=== PATIENT | female | born 1940 | race Caucasian/White ===

== ENCOUNTER 2016-09-10 18:49 | Inpatient (IN) | payer MEDICARE, MEDICAID ==
[2016-09-10 19:34] LABS: % BASOPHILS 0.1 % (0.0-2.0); % EOSINOPHILS 0.4 % (0.0-5.0); % LYMPHOCYTES 20.1 % (20.0-50.0); % MONOCYTES 4.6 % (2.0-10.0); % NEUTROPHILS 74.8 % (40.0-80.0); MEAN CELL VOLUME 84.6 fl (81-100); MEAN CORPUSCULAR HEMOGLOBIN 28.2 pg (27.0-31.0); MEAN CORPUSCULAR HGB CONC 33.3 pg (28.0-36.0); MEAN PLATELET VOLUME 9.4 fl; NEUTROPHILE ABSOLUTE 8.5 Th/cmm (1.8-8.0); PLATELET COUNT 236 Th/cmm (150-400); RED BLOOD COUNT 5.71 Mil/cmm (3.80-5.20); RED CELL DISTRIBUTION WIDTH 13.1 % (11.5-20.0)
[2016-09-10 19:39] LABS: WHITE BLOOD COUNT 11.3 Th/cmm (4.8-10.8)
[2016-09-10 19:40] LABS: HEMATOCRIT 48.3 % (35.0-45.0); HEMOGLOBIN 16.1 gm/dL (11.7-16.1)
[2016-09-10 19:48] LABS: ALB/GLOB RATIO 1.2 (1.0-1.8); ALKALINE PHOSPHATASE 106 U/L (34-104); ANION GAP 10.9 (7.0-16.0); BILIRUBIN,TOTAL 0.3 mg/dL (0.3-1.0); BUN - UREA NITROGEN 16 mg/dL (7-25); CALCIUM SERUM 10.1 mg/dL (8.6-10.3); CHLORIDE 107 mEq/L (98-107); GLUCOSE 143 mg/dL (70-105); POTASSIUM SERUM 3.9 mEq/L (3.5-5.1); SGOT 19 U/L (13-39); SGPT/ALT 7 U/L (7-52); SODIUM SERUM 139 mEq/L (136-145)
[2016-09-10 19:49] LABS: CHOLESTEROL 165 mg/dL (<200); TRIGLYCERIDES 248 mg/dL (<150)
[2016-09-10 19:53] LABS: INR 0.93 (0.5-1.4); PROTHROMBIN TIME (TEST) 9.7 SECONDS (9.5-11.5)
--- NOTE | 2016-09-10 20:15 | ED Physician Chart ---
Chief Complaint/HPI - Patient Information Date Seen:: 09/10/16 Time Seen:: 18:55 Chief Complaint:: generalized weakness History of Present Illness:: 76-year-old female with increasing, constant, moderate to severe generalized weakness 2-3 days. Associated decreased oral intake. History limited patient underlying dementia prevents history History provided by EMS and EMS run sheet Allergies:: Allergies Allergy/AdvReac Type Severity Reaction Status Date / Time nitrofurantoin Allergy Verified 09/10/16 19:34 Penicillins Allergy Verified 09/10/16 19:34 MACROCRYSTAL Allergy Uncoded 09/10/16 19:35 Vitals:: Vital Signs - 8 hr 09/10/16 19:07 Temp 98.7 F HR 106 RR 16 BP 143/80 O2 Sat % 95 Historian:: EMS Review:: Nurse's Note Reviewed, EMS run form Reviewed, Transfer documents Reviewed Review of Systems - Review of Systems Other: Complete system review otherwise unremarkable except as noted in HPI. Past Medical History - Past Medical History Past Medical History: HTN, Dementia Family History: None Social History: Non Smoker, No Alcohol, No Drug Use, Care Facility Surgical History: None Psychiatricy History: Schizophrenia Medication: Reviewed Family Medical History - Family Member Mother History Unknown: Yes Physical Exam - Physical Examination Other:: INITIAL VITAL SIGNS: Reviewed by me GENERAL: Alert and demented and not interactive. No acute distress HEAD: Head is normocephalic and atraumatic EYES: EOMI. . No scleral icterus. No conjunctival injection ENT: Moist mucous membranes. NECK: Supple. No masses. Full range of motion RESPIRATORY: No tachypnea. Clear breath sounds bilaterally. No wheezing, rales, or rhonchi CV: Regular rate and rhythm. No murmurs, rubs, or gallops ABDOMEN: Soft, non-distended, non-tender. No guarding. No rebound. No masses. EXTREMITIES: No deformity. No cyanosis. No edema. SKIN: Warm and dry. No obvious rashes. NEUROLOGIC: Alert and oriented. Face is symmetric. Speech is normal. Moves all extremities equally. Motor and sensory distally intact. Labs/Radiology/EKG Results - Lab Results Results: Laboratory Tests 09/10/16 09/10/16 09/10/16 19:10 19:10 19:10 WBC 11.3 H D RBC 5.71 H Hgb 16.1 D Hct 48.3 H D MCV 84.6 MCH 28.2 MCHC Differential 33.3 RDW 13.1 Plt Count 236 MPV 9.4 Neutrophils % 74.8 Lymphocytes % 20.1 Monocytes % 4.6 Eosinophils % 0.4 Basophils % 0.1 PT 9.7 INR 0.93 PTT (Actin FS) 26.1 Sodium Potassium Chloride Carbon Dioxide Anion Gap BUN Creatinine Est GFR ( Amer) Est GFR (Non-Af Amer) BUN/Creatinine Ratio Glucose Calcium Total Bilirubin AST ALT Alkaline Phosphatase Troponin I Total Protein Albumin Globulin Albumin/Globulin Ratio Triglycerides 248 H Cholesterol 165 LDL Cholesterol Direct 97 HDL Cholesterol 41 09/10/16 09/10/16 19:10 19:10 WBC RBC Hgb Hct MCV MCH MCHC Differential RDW Plt Count MPV Neutrophils % Lymphocytes % Monocytes % Eosinophils % Basophils % PT INR PTT (Actin FS) Sodium 139 Potassium 3.9 Chloride 107 Carbon Dioxide 25.0 Anion Gap 10.9 BUN 16 Creatinine 1.0 Est GFR ( Amer) TNP Est GFR (Non-Af Amer) TNP BUN/Creatinine Ratio 16.0 Glucose 143 H Calcium 10.1 Total Bilirubin 0.3 AST 19 ALT 7 Alkaline Phosphatase 106 H Troponin I < 0.01 L Total Protein 7.5 Albumin 4.1 Globulin 3.4 Albumin/Globulin Ratio 1.2 Triglycerides Cholesterol LDL Cholesterol Direct HDL Cholesterol - Radiology Results Results: Single AP VIEW Portable Chest X-ray was interpreted independently and contemporaneously by Kkie Light MD: No cardiomegaly Normal mediastinum No lung infiltrates No pneumothorax No soft tissue or bony abnormalities - EKG Interpretations Comments:: 12-lead EKG Interpretation by Kike Light MD: Sinus tachycardia with ventricular rate of 107 beats per minute Normal axis Normal intervals No acute ST or T wave changes. No obvious STEMI ED Septic Shock - . Is Septic Shock (SBP<90, OR Lactate>4 mmol\L) present?: No - <6hrs of presentation: Vital Signs: Vital Signs - 8 hr 09/10/16 19:07 Temp 98.7 F HR 106 RR 16 BP 143/80 O2 Sat % 95 Reassessment (Disposition) - Reassessment Reassessment:: The patient has UTI. Received IV fluids and IV Rocephin. Symptoms could be caused from the infection. May have some underlying encephalopathy due to infectious etiology. Discussed case with admitting physician he will admit for further workup and treatment. Reassessment Condition:: Improved - Diagnosis Diagnosis:: Failure to thrive with associated decreasing activities daily living Urinary tract infection Leukocytosis Hypertension - Patient Disposition Discharge/Transfer:: Acute Care w/in this hosp Admitting Medical Physician:: Adin Mora Time:: 21:20 Condition at Disposition:: Improved
[2016-09-10] MEDS ORDERED: Sodium Chloride 0.9% 1,000 ML IV ONE (20:20)
[2016-09-10] MEDS ORDERED: cefTRIAXone 1 GM in Sodium Chloride 0.9% 50 ML IV ONE (20:20)
[2016-09-10 21:19] LABS: URINE BILIRUBIN NEGATIVE (NEGATIVE); URINE COLOR YELLOW; URINE GLUCOSE (UA) NEGATIVE (NEGATIVE); URINE KETONE TRACE mg/dL (NEGATIVE)
[2016-09-10 21:21] LABS: URINE BLOOD MODERATE (NEGATIVE)
[2016-09-10 21:22] LABS: URINE PROTEIN 30 mg/dL (NEGATIVE)
[2016-09-10 21:24] LABS: URINE BACTERIA MANY /hpf (NONE SEEN); URINE EPITHELIAL CELLS FEW /lpf (FEW); URINE WBC >100 /hpf (0-5)
[2016-09-10] MEDS ORDERED: Albuterol Nebulizer 2.5mg/3mL HHN PRN (22:21)
[2016-09-10] MEDS: D5-0.45NS 1,000 ML IV SCH (23:41)
--- NOTE | 2016-09-11 03:50 | Admit Criteria Form ---
Admit Criteria Forms - Admit Criteria Diagnosis: URINARY COMPLICATIONS Clinical Indications for Inpatient Care (Place 'X' for any and all applicable criteria): Ongoing inpatient care may be indicated for urinary complications with ANY ONE of the following: [X ]I. Urinary tract infection requiring inpatient care as indicated by ANY ONE of the following(8)(19)(20): [ ]a) Severe symptoms (eg, high fever, severe pain) [ ]b) Vomiting or dehydration requiring ongoing inpatient care [X ]c) IV antibiotic needs that cannot be managed at lower level of care [ ]d) Hemodynamic instability [ ]e) Obstruction of collecting system by stone or tumor [ ]II. Urinary retention requiring drainage or surgery (3)(4)(5)(17)(18) [ ]III. Renal failure (Use Renal Failure Criteria for further information.) [ ]IV. Oliguria(30) [ ]V. Post obstructive diuresis requiring close monitoring of urine output and intravenous compensation for excessive fluid losses(33) Extended stay beyond goal length of stay for primary condition may be needed until ALL of the following are present(3)(4)(5)(8): [ ]a) Renal function (creatinine) at baseline, or daily decreases in creatinine consistent with renal function return [ ]b) Voiding adequately or with urinary catheter or percutaneous suprapubic tube and management regimen in place that is performable at lower level of care. [ ]c) Urine output adequate [ ]d) Fever absent or resolving [ ]e) Infection absent or treatable at next level of care The original [employer] content created by [employer] has been revised. The portions of the content which have been revised are identified through the use of italic text or in bold, and [facility] has neither reviewed nor approved the modified material. All other unmodified content is copyright [facility] [employer] Please see references footnoted in the original [facility] [employer] edition 2016 Admit Criteria Met?: Yes
[2016-09-11 07:12] LABS: ALB/GLOB RATIO 1.2 (1.0-1.8); ALKALINE PHOSPHATASE 83 U/L (34-104); ANION GAP 8.5 (7.0-16.0); BILIRUBIN,TOTAL 0.3 mg/dL (0.3-1.0); BUN - UREA NITROGEN 14 mg/dL (7-25); BUN/CREATININE RATIO 15.6; CALCIUM SERUM 8.8 mg/dL (8.6-10.3); CARBON DIOXIDE 27.2 mEq/L (21.0-31.0); CHLORIDE 110 mEq/L (98-107); CREATININE - SERUM 0.9 mg/dL (0.6-1.2); GLUCOSE 86 mg/dL (70-105); POTASSIUM SERUM 3.7 mEq/L (3.5-5.1); SGOT 14 U/L (13-39); SGPT/ALT 7 U/L (7-52); SODIUM SERUM 142 mEq/L (136-145)
[2016-09-11 07:14] LABS: MEAN CELL VOLUME 85.2 fl (81-100); MEAN CORPUSCULAR HEMOGLOBIN 28.3 pg (27.0-31.0); MEAN CORPUSCULAR HGB CONC 33.2 pg (28.0-36.0); MEAN PLATELET VOLUME 9.9 fl; PLATELET COUNT 190 Th/cmm (150-400); RED BLOOD COUNT 4.71 Mil/cmm (3.80-5.20); RED CELL DISTRIBUTION WIDTH 13.1 % (11.5-20.0)
[2016-09-11 07:16] LABS: HEMATOCRIT 40.1 % (35.0-45.0); HEMOGLOBIN 13.3 gm/dL (11.7-16.1); WHITE BLOOD COUNT 6.6 Th/cmm (4.8-10.8)
[2016-09-11] MEDS: Levothyroxine 0.125 Mg Tab PO SCH (08:37)
[2016-09-11 08:41] LABS: BASOPHIL 1 % (0-3); EOSINOPHIL 3 % (0-5); NEUTROPHILS 29 % (40-80); TOTAL CELLS COUNTED 100
[2016-09-11 08:42] LABS: PLATELET ESTIMATE ADEQUATE (NORMAL); PLATELET MORPHOLOGY NORMAL (NORMAL)
[2016-09-11] MEDS ORDERED: Non-Formulary Item 1 EA (Nutritional Supplement [Resource 2.0] 90 ML) PO SCH (09:00)
--- NOTE | 2016-09-11 09:25 | Diagnostic Imaging Report ---
Portable chest x-ray History: Shortness of breath Allowing for portable technique the heart size is normal. No focal pulmonary parenchymal processes. No hilar or mediastinal abnormalities. Impression: No acute abnormalities.
--- NOTE | 2016-09-11 12:24 | Consultation ---
AGE: 76. SEX: Female. PHYSICIAN: Dr. Castillo. AIRPLANE DISPATCHER: Dr. Cagle. REASON FOR THE CONSULT: Agitation and confusion. HISTORY OF PRESENT ILLNESS: The patient is a 76-year-old female who was admitted to the hospital under the care of Dr. Castillo, and the patient has been confused and has been agitated and restless. The patient also has been irritable. The patient also resisting care. The patient was not able to answer much of my questions and she seems to be developmentally disabled. She also was resisting care and disheveled. PAST PSYCHIATRIC HISTORY: The patient seems to have history of psychosis. PAST MEDICAL HISTORY: As per Dr. Castillo. SOCIAL HISTORY: The patient lives in a [facility]iary in the [facility]. No known alcohol or drug use. MENTAL STATUS EXAM: The patient appears older than his stated age. Disheveled. Restless. Keeps moving. The patient did not answer questions regarding hallucinations, but seems to be actively hallucinating and psychotic. Poor insight. Poor judgment. ASSESSMENT: PRIMARY DIAGNOSIS: Unspecified psychosis. TREATMENT PLAN AND RECOMMENDATIONS: We will give Seroquel at a dose of 12.5 mg on a p.r.n. basis. We will reevaluate. Thanks to Dr. Castillo and will follow up with you. JOB# [id number]
--- NOTE | 2016-09-11 15:36 | History & Physical ---
CHIEF COMPLAINT: Failure to thrive, UTI and generalized weakness. HISTORY OF PRESENT ILLNESS: This is a 76-year-old female who presents to [facility] ER for failure to thrive, dehydration, malnutrition and dysphagia. The patient was noted to have decreased [facility] at the prison facility, failure to thrive, losing weight, dehydration was subsequently transferred to [facility] ER for further evaluation and treatment. PAST MEDICAL HISTORY: Includes dementia, hypertension, schizophrenia, gastroesophageal reflux disease, osteoporosis, major depression and hypothyroidism. LABORATORY DATA: Her initial lab work revealed a white count of 11.3, hemoglobin 16.1, hematocrit 48.3, platelets 236. Chem-7: Sodium was 139, potassium 3.9, chloride 107, bicarb 25, BUN 16, creatinine 1.0, glucose 143. Her UA did show some cloudiness with moderate blood, positive nitrites, was noted to have moderate leukocyte esterase, also 5-10 red blood cells as well as over 100 wbc's, noted to have many bacteria. The patient's thyroid was normal at 4.6, AST 19, ALT 7, alkaline phosphatase 106. Troponin I was less than 0.01. Initial chest x-ray done in the ER was essentially normal, no acute disease. The patient was subsequently admitted for further evaluation and treatment and transferred to med/surg. REVIEW OF SYSTEMS: Unable to obtain due to patient's current condition. PHYSICAL EXAMINATION: VITAL SIGNS: Temperature 96.8, pulse 66, respirations 16, blood pressure 113/70. GENERAL: This is a well-developed, well nourished, cachectic looking 76-year-old female, appears older than her stated age. HEENT: Normocephalic, atraumatic. Pupils equal, round, react to light and accommodation. Extraocular muscles intact. Ears: TMs intact. NECK: Supple. Good range of motion. No thyromegaly. No lymphadenopathy. SKIN: Decreased skin turgor noted. Oral mucosa dry. CARDIOVASCULAR: Heart regular rate and rhythm. LUNGS: Clear to auscultation. ABDOMEN: Soft, nontender, nondistended. Bowel sounds are active in all 4 quadrants. EXTREMITIES: No clubbing, cyanosis or edema. Pedal pulses intact. NEUROLOGIC: Cranial nerves 2-12 grossly intact. ASSESSMENT: 1. Failure to thrive. 2. Generalized weakness. 3. Urinary tract infection. 4. Dehydration, malnutrition. 5. Dysphagia. 6. Dementia. 7. Depression. 8. Schizophrenia. 9. Hypertension. 10. Gastroesophageal reflux disease. PLAN: We will order a swallow evaluation. We will also order a GI consult for possible G-tube placement. We will start the patient on IV fluids D5 half normal saline at 50 mL per hour. We will order a repeat CBC and Chem-7 and will also order a Psych consult with Dr. Meneses. We will continue current medications. The patient also was started on Rocephin in the ER 1 gram IV every day. Urine sent for culture and sensitivity. JOB# [id number]
[2016-09-11] MEDS: D5-0.45NS 1,000 ML IV SCH (20:54)
[2016-09-11] MEDS: cefTRIAXone 1 GM in Sodium Chloride 0.9% 50 ML IV SCH (21:06)
[2016-09-12] MEDS: Levothyroxine 0.125 Mg Tab PO SCH (08:10)
[2016-09-12] MEDS: cefTRIAXone 1 GM in Sodium Chloride 0.9% 50 ML IV SCH (22:12)
--- NOTE | 2016-09-13 00:45 | Consultation ---
REASON FOR CONSULTATION: Dysphagia, failure to thrive. HISTORY OF PRESENT ILLNESS: A 76-year-old female with history of possible psychosis, which is unspecified; hypertension; GERD; depression; hypothyroidism and dementia; who presents with failure to thrive with dehydration. The patient ____ at a residential facility and had been refusing oral intake and having subsequent weight loss. PAST MEDICAL HISTORY: As per HPI. PAST SURGICAL HISTORY: As per HPI. ALLERGIES: No known drug allergies. MEDICATIONS: Please see medication reconciliation form. FAMILY HISTORY: Unable to obtain at this point. SOCIAL HISTORY: The patient is from a residential facility. REVIEW OF SYSTEMS: Unable to obtain given the patient's mental status. PHYSICAL EXAMINATION: VITAL SIGNS: Temperature is 97.2, pulse 83, respirations 18, blood pressure 105/54. GENERAL: In no acute distress. CARDIOVASCULAR: Regular rate and rhythm. ABDOMEN: Soft. LABORATORY DATA: White count 6.6, hemoglobin 13.3, platelets are 190. ASSESSMENT AND PLAN: A 76-year-old female with history of underlying psychosis, possible dementia with failure to thrive, dehydration. The patient has been started on medicines for her underlying psychosis. We will also obtain a swallow evaluation ____ consider placing a PEG tube for enteral nutrition. Thank you for this consult and allowing us to participate in the care of this patient. JOB# [id number]
[2016-09-13] MEDS: Levothyroxine 0.125 Mg Tab PO SCH (08:36)
[2016-09-13] MEDS: D5-0.45NS 1,000 ML IV SCH (13:38)
--- NOTE | 2016-09-13 14:29 | Infectious Disease Prog Note ---
Infectious Disease Subjective - Review of Systems Service Date: 09/13/16 Subjective: [id number] Infectious Disease Objective - Results Result Diagrams: 09/11/16 06:24 09/11/16 06:24 Recent Labs: Laboratory Last Values WBC 6.6 Th/cmm (4.8-10.8) D 09/11/16 06:24 RBC 4.71 Mil/cmm (3.80-5.20) 09/11/16 06:24 Hgb 13.3 gm/dL (11.7-16.1) D 09/11/16 06:24 Hct 40.1 % (35.0-45.0) D 09/11/16 06:24 MCV 85.2 fl (81-100) 09/11/16 06:24 MCH 28.3 pg (27.0-31.0) 09/11/16 06:24 MCHC Differential 33.2 pg (28.0-36.0) 09/11/16 06:24 RDW 13.1 % (11.5-20.0) 09/11/16 06:24 Plt Count 190 Th/cmm (150-400) 09/11/16 06:24 MPV 9.9 fl 09/11/16 06:24 Neutrophils % 74.8 % (40.0-80.0) 09/10/16 19:10 Lymphocytes % 20.1 % (20.0-50.0) 09/10/16 19:10 Monocytes % 4.6 % (2.0-10.0) 09/10/16 19:10 Eosinophils % 0.4 % (0.0-5.0) 09/10/16 19:10 Basophils % 0.1 % (0.0-2.0) 09/10/16 19:10 Neutrophils (Manual) 29 % (40-80) L 09/11/16 06:24 Lymphocytes 41 % (20-50) 09/11/16 06:24 Monocytes 19 % (2-10) H 09/11/16 06:24 Eosinophils 3 % (0-5) 09/11/16 06:24 Basophils 1 % (0-3) 09/11/16 06:24 Atypical Lymphocytes 7 % 09/11/16 06:24 Platelet Estimate ADEQUATE (NORMAL) 09/11/16 06:24 Platelet Morphology NORMAL (NORMAL) 09/11/16 06:24 RBC Morph Micro Appear NORMAL (NORMAL) 09/11/16 06:24 PT 9.7 SECONDS (9.5-11.5) 09/10/16 19:10 INR 0.93 (0.5-1.4) 09/10/16 19:10 PTT (Actin FS) 26.1 SECONDS (26.0-38.0) 09/10/16 19:10 Sodium 142 mEq/L (136-145) 09/11/16 06:24 Potassium 3.7 mEq/L (3.5-5.1) 09/11/16 06:24 Chloride 110 mEq/L (98-107) H 09/11/16 06:24 Carbon Dioxide 27.2 mEq/L (21.0-31.0) 09/11/16 06:24 Anion Gap 8.5 (7.0-16.0) 09/11/16 06:24 BUN 14 mg/dL (7-25) 09/11/16 06:24 Creatinine 0.9 mg/dL (0.6-1.2) 09/11/16 06:24 Est GFR ( Amer) TNP 09/11/16 06:24 Est GFR (Non-Af Amer) TNP 09/11/16 06:24 BUN/Creatinine Ratio 15.6 09/11/16 06:24 Glucose 86 mg/dL (70-105) 09/11/16 06:24 POC Glucose 77 MG/DL (70 - 105) 09/13/16 06:22 Whole Bld Lactic Acid 1.81 mmol/L (0.60-1.99) 09/10/16 21:00 Calcium 8.8 mg/dL (8.6-10.3) 09/11/16 06:24 Total Bilirubin 0.3 mg/dL (0.3-1.0) 09/11/16 06:24 AST 14 U/L (13-39) 09/11/16 06:24 ALT 7 U/L (7-52) 09/11/16 06:24 Alkaline Phosphatase 83 U/L (34-104) 09/11/16 06:24 Troponin I < 0.01 ng/mL (0.01-0.05) L 09/10/16 19:10 Total Protein 6.0 gm/dL (6.0-8.3) 09/11/16 06:24 Albumin 3.3 gm/dL (3.7-5.3) L 09/11/16 06:24 Globulin 2.7 gm/dL 09/11/16 06:24 Albumin/Globulin Ratio 1.2 (1.0-1.8) 09/11/16 06:24 Triglycerides 248 mg/dL (<150) H 09/10/16 19:10 Cholesterol 165 mg/dL (<200) 09/10/16 19:10 LDL Cholesterol Direct 97 mg/dL (75-193) 09/10/16 19:10 HDL Cholesterol 41 mg/dL (23-92) 09/10/16 19:10 TSH 4.69 uIU/ml (0.34-5.60) 09/10/16 19:10 Urine Source CLEAN C 09/10/16 20:10 Urine Color YELLOW 09/10/16 20:10 Urine Clarity CLOUDY (CLEAR) H 09/10/16 20:10 Urine pH 5.0 09/10/16 20:10 Ur Specific [place] 1.025 (1.005-1.030) 09/10/16 20:10 Urine Protein 30 mg/dL (NEGATIVE) H 09/10/16 20:10 Urine Glucose (UA) NEGATIVE mg/dL (NEGATIVE) 09/10/16 20:10 Urine Ketones TRACE mg/dL (NEGATIVE) 09/10/16 20:10 Urine Blood MODERATE (NEGATIVE) H 09/10/16 20:10 Urine Nitrate POSITIVE (NEGATIVE) H 09/10/16 20:10 Urine Bilirubin NEGATIVE (NEGATIVE) 09/10/16 20:10 Urine Urobilinogen 1.0 E.U./dL (0.2 - 1.0) 09/10/16 20:10 Ur Leukocyte Esterase MODERATE (NEGATIVE) H 09/10/16 20:10 Urine RBC 5-10 /hpf (0-5) H 09/10/16 20:10 Urine WBC >100 /hpf (0-5) H 09/10/16 20:10 Ur Epithelial Cells FEW /lpf (FEW) 09/10/16 20:10 Urine Bacteria MANY /hpf (NONE SEEN) 09/10/16 20:10 - Physical Exam Vitals and I&O: Vital Signs Temp 97.5 F 09/13/16 12:12 Pulse 77 09/13/16 12:12 Resp 18 09/13/16 12:12 BP 122/71 09/13/16 12:12 Pulse Ox 97 09/13/16 12:12 Intake & Output 09/12/16 09/13/16 09/13/16 18:59 06:59 18:59 Intake Total 1000 0 Balance 1000 0 Intake: Intake, IV Amount 1000 D5-0.45NS 1,000 ml @ 50 1000 mls/hr IV .Q20H [facility] Rx#: [id number] Oral 0 Other: # Voids 2 Active Medications: Current Medications Acetaminophen (Tylenol) 650 mg PO Q6HR PRN PRN Reason: Pain (Mild) Stop: 11/09/16 22:20 Acetaminophen (Tylenol) 650 mg PO Q6HR PRN PRN Reason: FVER >100F Stop: 11/09/16 22:20 Albuterol Sulfate (Albuterol 2.5mg/3ml Neb Ud) 2.5 mg HHN Q4HR PRN PRN Reason: Shortness of Breath or Wheeze Stop: 11/09/16 22:20 Alendronate Sodium (Fosamax) 70 mg PO We@0630 [facility] Stop: 11/14/16 06:29 Benazepril HCl (Lotensin) 10 mg PO DAILY [facility] Stop: 11/10/16 08:59 Last Admin: 09/13/16 08:36 Dose: Not Given Docusate Sodium (Colace) 250 mg PO HS [facility] Stop: 11/10/16 20:59 Last Admin: 09/12/16 21:16 Dose: Not Given Donepezil HCl (Aricept) 10 mg PO HS [facility] Stop: 11/10/16 20:59 Last Admin: 09/12/16 21:16 Dose: Not Given Famotidine (Pepcid) 20 mg PO DAILY [facility] Stop: 11/10/16 08:59 Last Admin: 09/13/16 08:37 Dose: Not Given Dextrose/Sodium Chloride (D5-0.45ns) 1,000 mls @ 50 mls/hr IV .Q20H [facility] Stop: 11/09/16 22:18 Last Admin: 09/13/16 13:38 Dose: 50 mls/hr Meropenem 1 gm/ Sodium (Chloride) 100 mls @ 100 mls/hr IV Q8H [facility] Stop: 11/12/16 14:24 Levothyroxine Sodium (Synthroid) 0.125 mg PO QDAC [facility] Stop: 11/10/16 07:29 Last Admin: 09/13/16 08:36 Dose: Not Given Lorazepam (Ativan) 1 mg PO Q6HR PRN; Protocol PRN Reason: Agitation Stop: 11/10/16 11:23 Last Admin: 09/12/16 09:37 Dose: 1 mg Mirtazapine (Remeron) 15 mg PO HS [facility] PRN Reason: Protocol Stop: 11/10/16 20:59 Last Admin: 09/12/16 21:16 Dose: Not Given - Procedures Procedures: Procedures Procedure Code Date EMERGENCY DEPT VISIT 46676 10/02/11 INJECT/INFUSE NEC 99.29 03/06/10 LAPAROSCOPIC CHOLECYSTECTOMY 51.23 03/14/12 LAPAROSCOPIC CHOLECYSTECTOMY 18614 03/14/12 OTHER GROUP THERAPY 94.44 10/02/11 THER/PROPH/DIAG INJ SC/IM 81137 03/06/10 Infectious Disease Assmt/Plan - Problem List Patient Problems: All Active Problems Abdominal pain (Acute) R10.9 Nutritional Asmnt/Malnutr-PDOC - Dietary Evaluation Malnutrition Findings (Please click <Entered> for more info): Nutritional Asmnt/Malnutrition Start: 09/11/16 10: 40 Text: Status: Complete Freq: Document 09/11/16 10:42 MMNITO (Rec: 09/11/16 10:51 MMNITO [id number] FNS1) Nutritional Asmnt/Malnutrition Patient General Information Nutritional Screening High Risk Screening Diagnosis Failure to thrive, UTI, generalized weakness (reason for visit) Pertinent Medical Hx/Surgical Hx Dementia, schizophrenia, GERD, hypothyroidism, difficulty walking, osteoporosis, generalized weakness Subjective Information Patient was admitted for having severe generalized weakness and decreased PO intake for 2-3 days. Patient in bed at time of visit, appears agitated. Per nursing, she is heistent to take in any oral intake. Current Diet Order/ Nutrition Support Pureed Patient / S.O Not Indicated Pertinent Medications colace, pepcid, synthroid Pertinent Labs Albumin 3.3, TAG 248 Nutritional Hx/Data Height 1.65 m Height (Calculated Centimeters) 165.1 Current Weight (lbs) 58.06 kg Weight (Calculated Kilograms) 58.1 Weight (Calculated Grams) 31227.8 [place] Body Weight 125 % [place] Body Weight 102 Recent Weight Change No Weight Status Approriate GI Symptoms Difficult in: Chewing Food Allergies No Cultural/Ethnic/Alevism Belief none indicated Usual diet at home Pureed Skin Integrity/Comment: IntactJuice 14 Current %PO Poor (25-49%) Estimated Nutritional Goals BEE in Kcals: Using Current wt Calories/Kcals/Kg 27-32 kcal/kg (slight increase for FTT) Kcals Calculated 3212-7536 kcal/day Protein: Using Current wt Protein g/k-1.2 gm/kg Protein Calculated 60-70 gm/day Fluid: ml 8714-9642 ml/day Nutritional Problem 1. Problem Problem Inadequate oral intake related to Etiology possible poor appetite aeb Signs/Symptoms: meeting <50% of estimated nutrient needs Malnutrition Related to Morbid Obesity Malnutrition related to morbid obesity No Intervention/Recommendation Recommendations by RD Protein supplementation Comments 1. Continue pureed diet with healthshake and encourage oral intake. Provided assistance with meals. 2. If patient continues to denies oral intake, may consider enteral nutrition. Expected Outcomes/Goals Expected Outcomes/Goals Oral intake improves to meet > 75% of needs, weight remains stable, skin remains intact Physician Parameters for PEM Serum Albumin (g/dl) 3.1 - 3.4 (Mild)
[2016-09-13] MEDS: Meropenem 1 GM in Sodium Chloride 0.9% 100 ML IV SCH ×2 (15:30→22:37)
--- NOTE | 2016-09-13 15:49 | Diagnostic Imaging Report ---
Renal ultrasound HISTORY: Pyelonephritis COMPARISON: CT abdomen and pelvis on 04/17/2014 Technique: Sonography of the kidneys and urinary bladder was performed in multiple planes. FINDINGS: Exam is limited due to patient lack of cooperation. The right kidney was poorly visualized. The right kidney measures 9.3 x 4.8 cm. No evidence of hydronephrosis. The left kidney was not well-visualized. The urinary bladder is underdistended limiting its evaluation. IMPRESSION: Severely limited exam as patient was unable to cooperate. No evidence of hydronephrosis of the right kidney. The left kidney was not well-visualized. Consider further assessment with CT examination.
--- NOTE | 2016-09-14 00:37 | Progress Notes ---
Case discussed with staff and the patient, reviewed records. Covering for Dr. Cagle. The patient is a 76-year-old female who is being confused, demented. The patient so far was not willing to answer my questions. She has been acting aggressive. She also has been dehydrated, malnutrition, dysphagia, has been depressed, ____ schizophrenia. She has been compliant so far with the medications with no side effects. She has been on Remeron with no side effects and she is unpredictable, impulsive. Thank you very much for allowing me to participate in the care of this most interesting lady. JOB# [id number]
--- NOTE | 2016-09-14 02:35 | Consultation ---
REFERRING PHYSICIAN: Dr. Adin Mora. REASON FOR CONSULTATION: UTI and pyelonephritis. HISTORY OF PRESENT ILLNESS: The patient is a 76-year-old female with the past medical history of dementia, hypertension, schizophrenia, GERD, osteoporosis, major depression and hypothyroidism, brought to the [facility] ER for failure to thrive and dehydration. The patient was noted to have decreased appetite at nursing facility and started losing weight. She was also found to be dehydrated. So, the patient was transferred to [facility] for PEG placement. On initial evaluation, the patient's temperature was 98.7 degrees Fahrenheit and WBC count was 11,300. Sepsis workup was performed and urine culture grew ESBL E. coli. The patient was started on Rocephin and ID consult was called for further antibiotic management. PAST MEDICAL HISTORY: Includes as mentioned above, dementia, hypertension, schizophrenia, GERD, osteoporosis, major depression and hypothyroidism. SOCIAL HISTORY: The patient lives in a nursing facility. No history of smoking, alcohol or drug use. ALLERGIES: The patient is allergic to penicillin and nitrofurantoin. The patient has tolerated Rocephin without any difficulty. MEDICATIONS: As per medication reconciliation sheet. Antibiotic samuel, the patient is on Rocephin. FAMILY HISTORY: Not available. REVIEW OF SYSTEMS: The patient is a poor historian, unable to give any history so far. The patient has no fever and no chills. No abdominal pain, no nausea, no vomiting and no diarrhea. The patient has lost appetite. PHYSICAL EXAMINATION: CURRENT VITAL SIGNS: Shows temperature is 97.5 degree Fahrenheit, pulse is 77, respiration is 18 and blood pressure 122/71. GENERAL: The patient is comfortable lying in the bed, mildly cachectic, not in acute distress. HEENT: Head is normocephalic and atraumatic. Oral mucosa moist. [place] tongue. Eyes: Pallor is present, no icterus. PERRLA, EOMI. NECK: Supple. No JVD and no carotid bruit. Trachea in midline. CHEST: Bilateral breath sounds. No crackles or wheezing. HEART: S1 and S2 within normal limits. Regular rhythm. No murmur and no gallop. ABDOMEN: Soft, nontender and nondistended. Bowel sounds present. EXTREMITIES: No cyanosis, no clubbing and no edema. NEUROLOGIC: Alert, awake, but not interacting at this time. The patient is avoiding the communication. LABORATORY DATA: Lab samuel, current lab shows WBC count is 6600, hemoglobin 13.3, hematocrit 40.1, platelets are 190,000, neutrophil is 29% and eosinophil 19%. Sodium is 142, potassium 3.7, chloride 110, bicarbonate is 27, BUN is 14, creatinine 0.9 and glucose is 86. Urinalysis shows positive nitrite and moderate leukoesterase and WBC more than 100 and many bacteria. Blood cultures are negative. MRSA screen is negative. Urine culture grew ESBL E. coli. IMPRESSION: 1. Extended-spectrum beta-lactamases, Escherichia coli, urinary tract infection, rule out pyelonephritis. 2. Failure to thrive. 3. History of hypertension. 4. History of hypothyroidism. 5. Dementia. 6. Depression. RECOMMENDATIONS: Will change Rocephin to meropenem and start renal ultrasound. Thank you, Dr. Mora for involving me taking care of this patient. [facility]# [id number] [facility] MEDICAL CENTERJolynn
[2016-09-14] MEDS: Meropenem 1 GM in Sodium Chloride 0.9% 100 ML IV SCH ×4 (05:50→21:26)
[2016-09-14] MEDS: Levothyroxine 0.125 Mg Tab PO SCH (07:57)
--- NOTE | 2016-09-14 10:45 | Infectious Disease Prog Note ---
Infectious Disease Subjective - Review of Systems Service Date: 09/14/16 Subjective: Patient is poor historian unable to cooperate, so renal ultrasound was not completed. Infectious Disease Objective - Results Result Diagrams: 09/11/16 06:24 09/11/16 06:24 Recent Labs: Laboratory Last Values WBC 6.6 Th/cmm (4.8-10.8) D 09/11/16 06:24 RBC 4.71 Mil/cmm (3.80-5.20) 09/11/16 06:24 Hgb 13.3 gm/dL (11.7-16.1) D 09/11/16 06:24 Hct 40.1 % (35.0-45.0) D 09/11/16 06:24 MCV 85.2 fl (81-100) 09/11/16 06:24 MCH 28.3 pg (27.0-31.0) 09/11/16 06:24 MCHC Differential 33.2 pg (28.0-36.0) 09/11/16 06:24 RDW 13.1 % (11.5-20.0) 09/11/16 06:24 Plt Count 190 Th/cmm (150-400) 09/11/16 06:24 MPV 9.9 fl 09/11/16 06:24 Neutrophils % 74.8 % (40.0-80.0) 09/10/16 19:10 Lymphocytes % 20.1 % (20.0-50.0) 09/10/16 19:10 Monocytes % 4.6 % (2.0-10.0) 09/10/16 19:10 Eosinophils % 0.4 % (0.0-5.0) 09/10/16 19:10 Basophils % 0.1 % (0.0-2.0) 09/10/16 19:10 Neutrophils (Manual) 29 % (40-80) L 09/11/16 06:24 Lymphocytes 41 % (20-50) 09/11/16 06:24 Monocytes 19 % (2-10) H 09/11/16 06:24 Eosinophils 3 % (0-5) 09/11/16 06:24 Basophils 1 % (0-3) 09/11/16 06:24 Atypical Lymphocytes 7 % 09/11/16 06:24 Platelet Estimate ADEQUATE (NORMAL) 09/11/16 06:24 Platelet Morphology NORMAL (NORMAL) 09/11/16 06:24 RBC Morph Micro Appear NORMAL (NORMAL) 09/11/16 06:24 PT 9.7 SECONDS (9.5-11.5) 09/10/16 19:10 INR 0.93 (0.5-1.4) 09/10/16 19:10 PTT (Actin FS) 26.1 SECONDS (26.0-38.0) 09/10/16 19:10 Sodium 142 mEq/L (136-145) 09/11/16 06:24 Potassium 3.7 mEq/L (3.5-5.1) 09/11/16 06:24 Chloride 110 mEq/L (98-107) H 09/11/16 06:24 Carbon Dioxide 27.2 mEq/L (21.0-31.0) 09/11/16 06:24 Anion Gap 8.5 (7.0-16.0) 09/11/16 06:24 BUN 14 mg/dL (7-25) 09/11/16 06:24 Creatinine 0.9 mg/dL (0.6-1.2) 09/11/16 06:24 Est GFR ( Amer) TNP 09/11/16 06:24 Est GFR (Non-Af Amer) TNP 09/11/16 06:24 BUN/Creatinine Ratio 15.6 09/11/16 06:24 Glucose 86 mg/dL (70-105) 09/11/16 06:24 POC Glucose 77 MG/DL (70 - 105) 09/13/16 06:22 Whole Bld Lactic Acid 1.81 mmol/L (0.60-1.99) 09/10/16 21:00 Calcium 8.8 mg/dL (8.6-10.3) 09/11/16 06:24 Total Bilirubin 0.3 mg/dL (0.3-1.0) 09/11/16 06:24 AST 14 U/L (13-39) 09/11/16 06:24 ALT 7 U/L (7-52) 09/11/16 06:24 Alkaline Phosphatase 83 U/L (34-104) 09/11/16 06:24 Troponin I < 0.01 ng/mL (0.01-0.05) L 09/10/16 19:10 Total Protein 6.0 gm/dL (6.0-8.3) 09/11/16 06:24 Albumin 3.3 gm/dL (3.7-5.3) L 09/11/16 06:24 Globulin 2.7 gm/dL 09/11/16 06:24 Albumin/Globulin Ratio 1.2 (1.0-1.8) 09/11/16 06:24 Triglycerides 248 mg/dL (<150) H 09/10/16 19:10 Cholesterol 165 mg/dL (<200) 09/10/16 19:10 LDL Cholesterol Direct 97 mg/dL (75-193) 09/10/16 19:10 HDL Cholesterol 41 mg/dL (23-92) 09/10/16 19:10 TSH 4.69 uIU/ml (0.34-5.60) 09/10/16 19:10 Urine Source CLEAN C 09/10/16 20:10 Urine Color YELLOW 09/10/16 20:10 Urine Clarity CLOUDY (CLEAR) H 09/10/16 20:10 Urine pH 5.0 09/10/16 20:10 Ur Specific [place] 1.025 (1.005-1.030) 09/10/16 20:10 Urine Protein 30 mg/dL (NEGATIVE) H 09/10/16 20:10 Urine Glucose (UA) NEGATIVE mg/dL (NEGATIVE) 09/10/16 20:10 Urine Ketones TRACE mg/dL (NEGATIVE) 09/10/16 20:10 Urine Blood MODERATE (NEGATIVE) H 09/10/16 20:10 Urine Nitrate POSITIVE (NEGATIVE) H 09/10/16 20:10 Urine Bilirubin NEGATIVE (NEGATIVE) 09/10/16 20:10 Urine Urobilinogen 1.0 E.U./dL (0.2 - 1.0) 09/10/16 20:10 Ur Leukocyte Esterase MODERATE (NEGATIVE) H 09/10/16 20:10 Urine RBC 5-10 /hpf (0-5) H 09/10/16 20:10 Urine WBC >100 /hpf (0-5) H 09/10/16 20:10 Ur Epithelial Cells FEW /lpf (FEW) 09/10/16 20:10 Urine Bacteria MANY /hpf (NONE SEEN) 09/10/16 20:10 - Physical Exam Vitals and I&O: Vital Signs Temp 97.4 F 09/14/16 08:33 Pulse 66 09/14/16 08:33 Resp 17 09/14/16 08:33 BP 99/63 09/14/16 08:33 Pulse Ox 96 09/14/16 08:33 Intake & Output 09/13/16 09/14/16 09/14/16 18:59 06:59 18:59 Intake Total 100 100 Balance 100 100 Intake: Intake, IV Amount 100 100 Meropenem 1 gm In Sodium 100 100 Chloride 0.9% 100 ml @ 100 mls/hr IV Q8H [facility] Rx# :[id number] Oral 0 Other: # Voids 3 Active Medications: Current Medications Acetaminophen (Tylenol) 650 mg PO Q6HR PRN PRN Reason: Pain (Mild) Stop: 11/09/16 22:20 Acetaminophen (Tylenol) 650 mg PO Q6HR PRN PRN Reason: FVER >100F Stop: 11/09/16 22:20 Albuterol Sulfate (Albuterol 2.5mg/3ml Neb Ud) 2.5 mg HHN Q4HR PRN PRN Reason: Shortness of Breath or Wheeze Stop: 11/09/16 22:20 Alendronate Sodium (Fosamax) 70 mg PO We@0630 [facility] Stop: 11/14/16 06:29 Benazepril HCl (Lotensin) 10 mg PO DAILY [facility] Stop: 11/10/16 08:59 Last Admin: 09/14/16 08:00 Dose: Not Given Docusate Sodium (Colace) 250 mg PO HS [facility] Stop: 11/10/16 20:59 Last Admin: 09/13/16 20:24 Dose: 250 mg Donepezil HCl (Aricept) 10 mg PO HS [facility] Stop: 11/10/16 20:59 Last Admin: 09/13/16 20:24 Dose: 10 mg Famotidine (Pepcid) 20 mg PO DAILY [facility] Stop: 11/10/16 08:59 Last Admin: 09/14/16 08:00 Dose: Not Given Dextrose/Sodium Chloride (D5-0.45ns) 1,000 mls @ 50 mls/hr IV .Q20H [facility] Stop: 11/09/16 22:18 Last Admin: 09/13/16 13:38 Dose: 50 mls/hr Meropenem 1 gm/ Sodium (Chloride) 100 mls @ 100 mls/hr IV Q8H [facility] Stop: 11/12/16 13:59 Last Admin: 09/14/16 05:50 Dose: 100 mls/hr Levothyroxine Sodium (Synthroid) 0.125 mg PO QDAC [facility] Stop: 11/10/16 07:29 Last Admin: 09/14/16 07:57 Dose: Not Given Lorazepam (Ativan) 1 mg PO Q6HR PRN; Protocol PRN Reason: Agitation Stop: 11/10/16 11:23 Last Admin: 09/12/16 09:37 Dose: 1 mg Mirtazapine (Remeron) 15 mg PO HS [facility] PRN Reason: Protocol Stop: 11/10/16 20:59 Last Admin: 09/13/16 20:24 Dose: 15 mg General: no acute distress, well developed, well nourished HEENT: atraumatic, normocephalic, PERRLA, EOMI Neck: supple, no thyromegaly Cardiovascular: S1S2, regular Lungs: clear to auscultation bilaterally, clear to percussion Abdomen: soft, no tender, no distended Extremities: no cyanosis, no clubbing, no edema Neurological: awake, alert, oriented, CN 2-12 intact Skin: intact - Procedures Procedures: Procedures Procedure Code Date EMERGENCY DEPT VISIT 64886 10/02/11 INJECT/INFUSE NEC 99.29 03/06/10 LAPAROSCOPIC CHOLECYSTECTOMY 51.23 03/14/12 LAPAROSCOPIC CHOLECYSTECTOMY 58672 03/14/12 OTHER GROUP THERAPY 94.44 10/02/11 THER/PROPH/DIAG INJ SC/IM 16104 03/06/10 Infectious Disease Assmt/Plan - Problem List Patient Problems: All Active Problems Abdominal pain (Acute) R10.9 - Assessment Assessment: Impression: 1. UTI, ESBL E coli and suspect pyelonephritis. 2. Dementia. 3. Failure to thrive. Recommendations: Continue meropenem, when needed may change meropenem to Invannz 1 G IV daily for 12 days from now. Nutritional Asmnt/Malnutr-PDOC - Dietary Evaluation Malnutrition Findings (Please click <Entered> for more info): Nutritional Asmnt/Malnutrition Start: 09/11/16 10: 40 Text: Status: Complete Freq: Document 09/11/16 10:42 MMULHERN (Rec: 09/11/16 10:51 AYLIN FARIDEH- FNS1) Nutritional Asmnt/Malnutrition Patient General Information Nutritional Screening High Risk Screening Diagnosis Failure to thrive, UTI, generalized weakness (reason for visit) Pertinent Medical Hx/Surgical Hx Dementia, schizophrenia, GERD, hypothyroidism, difficulty walking, osteoporosis, generalized weakness Subjective Information Patient was admitted for having severe generalized weakness and decreased PO intake for 2-3 days. Patient in bed at time of visit, appears agitated. Per nursing, she is heistent to take in any oral intake. Current Diet Order/ Nutrition Support Pureed Patient / S.O Not Indicated Pertinent Medications colace, pepcid, synthroid Pertinent Labs Albumin 3.3, TAG 248 Nutritional Hx/Data Height 1.65 m Height (Calculated Centimeters) 165.1 Current Weight (lbs) 58.06 kg Weight (Calculated Kilograms) 58.1 Weight (Calculated Grams) 91338.8 [place] Body Weight 125 % [place] Body Weight 102 Recent Weight Change No Weight Status Approriate GI Symptoms Difficult in: Chewing Food Allergies No Cultural/Ethnic/Worship Belief none indicated Usual diet at home Pureed Skin Integrity/Comment: Intact, Juice 14 Current %PO Poor (25-49%) Estimated Nutritional Goals BEE in Kcals: Using Current wt Calories/Kcals/Kg 27-32 kcal/kg (slight increase for FTT) Kcals Calculated 7405-6578 kcal/day Protein: Using Current wt Protein g/k-1.2 gm/kg Protein Calculated 60-70 gm/day Fluid: ml 2669-1218 ml/day Nutritional Problem 1. Problem Problem Inadequate oral intake related to Etiology possible poor appetite aeb Signs/Symptoms: meeting <50% of estimated nutrient needs Malnutrition Related to Morbid Obesity Malnutrition related to morbid obesity No Intervention/Recommendation Recommendations by RD Protein supplementation Comments 1. Continue pureed diet with healthshake and encourage oral intake. Provided assistance with meals. 2. If patient continues to denies oral intake, may consider enteral nutrition. Expected Outcomes/Goals Expected Outcomes/Goals Oral intake improves to meet > 75% of needs, weight remains stable, skin remains intact Physician Parameters for PEM Serum Albumin (g/dl) 3.1 - 3.4 (Mild)
--- NOTE | 2016-09-14 18:56 | Operative Report ---
NAME OF PROCEDURE: PEG tube placement. REFERRING PHYSICIAN: Dr. Adin Mora. REASON FOR PROCEDURE: Dysphagia. CONSENT: Risks, benefits, alternatives, nature, indication, possible outcomes were discussed. Mentioned bleeding, infection, perforation, , disability, cardiopulmonary distress and arrest, missed lesion and cancers, need for surgery, cellulitis, malfunctioning of feeding tube, the patient pulling out the feeding tube. The patient is agreeing prior to provide informed consent. PREOPERATIVE DIAGNOSIS: Dysphagia. POSTOPERATIVE DIAGNOSIS: PEG tube placement. MEDICATIONS: Fentanyl 50 mcg, Versed 2 mg and meropenem IV on board. DESCRIPTION OF PROCEDURE: The patient was placed on her back. Upper gastroscope advanced from the mouth and second portion of duodenum. Scope brought back in the stomach and retroflexion view of fundus, cardia and lesser curvature. Scope was straightened. Stomach was insufflated with air. Transillumination was seen in the left upper quadrant. The area was prepped in the usual sterile fashion and 1:1 transposition of external wall forces was noted. The area was prepped in the usual sterile fashion and 3 mL of 1% lidocaine were used to anesthetize the area. Trocar was advanced from the anterior abdominal wall, entering into stomach lumen. On endoscope view, wire was passed through the trocar, captured with a snare, pulled out through the oral end of the patient. PEG tube was attached to the oral end of the wire. A small lateral incision was made at the entry site of the trocar. Wire was pulled into position pulling along with the PEG tube. Gastroscope readvanced back into the stomach where the bumper was seen in satisfactory position. Scope was then removed. COMPLICATIONS: None. FINDINGS: PEG tube placement. RECOMMENDATIONS: 1. User G-tube in 8 hours. 2. Check residual every 6 hours and hold if greater than 100 mL. 3. Abdominal binder to protect the G-tube. Thank you for allowing me to participate. Please call me if any questions. JOB# [id number]
--- NOTE | 2016-09-15 00:46 | Progress Notes ---
Covering for Dr. Cagle. Case discussed with staff of the patient, reviewed records. The patient continues to be demented, confused, unpredictable, impulsive, needing redirection, very poor insight and unpredictable. She is compliant with the medication with no side effects, no sedation, no nausea, no extrapyramidal symptoms. Thank you very much for allowing me to participate in the care of this most interesting lady. JOB# [id number]
[2016-09-15] MEDS ORDERED: HYDROmorphone 1 mg/mL 1mL Syr IVP PRN (01:49)
[2016-09-15] MEDS: D5-0.45NS 1,000 ML IV SCH (02:42)
[2016-09-15] MEDS: Meropenem 1 GM in Sodium Chloride 0.9% 100 ML IV SCH ×3 (06:37→21:10)
[2016-09-15] MEDS: Levothyroxine 0.125 Mg Tab PO SCH (06:39)
--- NOTE | 2016-09-15 22:18 | Infectious Disease Prog Note ---
Infectious Disease Subjective - Review of Systems Service Date: 09/15/16 Subjective: PEG placement was performed yesterday. Infectious Disease Objective - Results Result Diagrams: 09/11/16 06:24 09/11/16 06:24 Recent Labs: Laboratory Last Values WBC 6.6 Th/cmm (4.8-10.8) D 09/11/16 06:24 RBC 4.71 Mil/cmm (3.80-5.20) 09/11/16 06:24 Hgb 13.3 gm/dL (11.7-16.1) D 09/11/16 06:24 Hct 40.1 % (35.0-45.0) D 09/11/16 06:24 MCV 85.2 fl (81-100) 09/11/16 06:24 MCH 28.3 pg (27.0-31.0) 09/11/16 06:24 MCHC Differential 33.2 pg (28.0-36.0) 09/11/16 06:24 RDW 13.1 % (11.5-20.0) 09/11/16 06:24 Plt Count 190 Th/cmm (150-400) 09/11/16 06:24 MPV 9.9 fl 09/11/16 06:24 Neutrophils % 74.8 % (40.0-80.0) 09/10/16 19:10 Lymphocytes % 20.1 % (20.0-50.0) 09/10/16 19:10 Monocytes % 4.6 % (2.0-10.0) 09/10/16 19:10 Eosinophils % 0.4 % (0.0-5.0) 09/10/16 19:10 Basophils % 0.1 % (0.0-2.0) 09/10/16 19:10 Neutrophils (Manual) 29 % (40-80) L 09/11/16 06:24 Lymphocytes 41 % (20-50) 09/11/16 06:24 Monocytes 19 % (2-10) H 09/11/16 06:24 Eosinophils 3 % (0-5) 09/11/16 06:24 Basophils 1 % (0-3) 09/11/16 06:24 Atypical Lymphocytes 7 % 09/11/16 06:24 Platelet Estimate ADEQUATE (NORMAL) 09/11/16 06:24 Platelet Morphology NORMAL (NORMAL) 09/11/16 06:24 RBC Morph Micro Appear NORMAL (NORMAL) 09/11/16 06:24 PT 9.7 SECONDS (9.5-11.5) 09/10/16 19:10 INR 0.93 (0.5-1.4) 09/10/16 19:10 PTT (Actin FS) 26.1 SECONDS (26.0-38.0) 09/10/16 19:10 Sodium 142 mEq/L (136-145) 09/11/16 06:24 Potassium 3.7 mEq/L (3.5-5.1) 09/11/16 06:24 Chloride 110 mEq/L (98-107) H 09/11/16 06:24 Carbon Dioxide 27.2 mEq/L (21.0-31.0) 09/11/16 06:24 Anion Gap 8.5 (7.0-16.0) 09/11/16 06:24 BUN 14 mg/dL (7-25) 09/11/16 06:24 Creatinine 0.9 mg/dL (0.6-1.2) 09/11/16 06:24 Est GFR ( Amer) TNP 09/11/16 06:24 Est GFR (Non-Af Amer) TNP 09/11/16 06:24 BUN/Creatinine Ratio 15.6 09/11/16 06:24 Glucose 86 mg/dL (70-105) 09/11/16 06:24 POC Glucose 91 MG/DL (70 - 105) 09/14/16 15:44 Whole Bld Lactic Acid 1.81 mmol/L (0.60-1.99) 09/10/16 21:00 Calcium 8.8 mg/dL (8.6-10.3) 09/11/16 06:24 Total Bilirubin 0.3 mg/dL (0.3-1.0) 09/11/16 06:24 AST 14 U/L (13-39) 09/11/16 06:24 ALT 7 U/L (7-52) 09/11/16 06:24 Alkaline Phosphatase 83 U/L (34-104) 09/11/16 06:24 Troponin I < 0.01 ng/mL (0.01-0.05) L 09/10/16 19:10 Total Protein 6.0 gm/dL (6.0-8.3) 09/11/16 06:24 Albumin 3.3 gm/dL (3.7-5.3) L 09/11/16 06:24 Globulin 2.7 gm/dL 09/11/16 06:24 Albumin/Globulin Ratio 1.2 (1.0-1.8) 09/11/16 06:24 Triglycerides 248 mg/dL (<150) H 09/10/16 19:10 Cholesterol 165 mg/dL (<200) 09/10/16 19:10 LDL Cholesterol Direct 97 mg/dL (75-193) 09/10/16 19:10 HDL Cholesterol 41 mg/dL (23-92) 09/10/16 19:10 TSH 4.69 uIU/ml (0.34-5.60) 09/10/16 19:10 Urine Source CLEAN C 09/10/16 20:10 Urine Color YELLOW 09/10/16 20:10 Urine Clarity CLOUDY (CLEAR) H 09/10/16 20:10 Urine pH 5.0 09/10/16 20:10 Ur Specific [place] 1.025 (1.005-1.030) 09/10/16 20:10 Urine Protein 30 mg/dL (NEGATIVE) H 09/10/16 20:10 Urine Glucose (UA) NEGATIVE mg/dL (NEGATIVE) 09/10/16 20:10 Urine Ketones TRACE mg/dL (NEGATIVE) 09/10/16 20:10 Urine Blood MODERATE (NEGATIVE) H 09/10/16 20:10 Urine Nitrate POSITIVE (NEGATIVE) H 09/10/16 20:10 Urine Bilirubin NEGATIVE (NEGATIVE) 09/10/16 20:10 Urine Urobilinogen 1.0 E.U./dL (0.2 - 1.0) 09/10/16 20:10 Ur Leukocyte Esterase MODERATE (NEGATIVE) H 09/10/16 20:10 Urine RBC 5-10 /hpf (0-5) H 09/10/16 20:10 Urine WBC >100 /hpf (0-5) H 09/10/16 20:10 Ur Epithelial Cells FEW /lpf (FEW) 09/10/16 20:10 Urine Bacteria MANY /hpf (NONE SEEN) 09/10/16 20:10 - Physical Exam Vitals and I&O: Vital Signs Temp 97.6 F 09/15/16 20:00 Pulse 73 09/15/16 20:00 Resp 18 09/15/16 20:00 BP 108/51 09/15/16 20:00 Pulse Ox 96 09/15/16 20:00 Intake & Output 09/15/16 09/15/16 09/16/16 06:59 18:59 06:59 Intake Total 100 500 Balance 100 500 Intake: Intake, IV Amount 100 200 Meropenem 1 gm In Sodium 100 200 Chloride 0.9% 100 ml @ 100 mls/hr IV Q8H [facility] Rx# :[id number] Tube Feeding 300 Other: # Voids 3 2 Active Medications: Current Medications Acetaminophen (Tylenol) 650 mg PO Q6HR PRN PRN Reason: Pain (Mild) Stop: 11/09/16 22:20 Last Admin: 09/14/16 21:34 Dose: 650 mg Acetaminophen (Tylenol) 650 mg PO Q6HR PRN PRN Reason: FVER >100F Stop: 11/09/16 22:20 Albuterol Sulfate (Albuterol 2.5mg/3ml Neb Ud) 2.5 mg HHN Q4HR PRN PRN Reason: Shortness of Breath or Wheeze Stop: 11/09/16 22:20 Alendronate Sodium (Fosamax) 70 mg PO We@0630 [facility] Stop: 11/14/16 06:29 Last Admin: 09/15/16 07:49 Dose: Not Given Benazepril HCl (Lotensin) 10 mg PO DAILY [facility] Stop: 11/10/16 08:59 Last Admin: 09/15/16 08:29 Dose: 10 mg Docusate Sodium (Colace) 250 mg PO HS [facility] Stop: 11/10/16 20:59 Last Admin: 09/15/16 20:39 Dose: 250 mg Donepezil HCl (Aricept) 10 mg PO HS [facility] Stop: 11/10/16 20:59 Last Admin: 09/15/16 20:38 Dose: 10 mg Famotidine (Pepcid) 20 mg PO DAILY [facility] Stop: 11/10/16 08:59 Last Admin: 09/15/16 08:29 Dose: 20 mg Hydromorphone HCl (Dilaudid) 1 mg IVP Q6HR PRN PRN Reason: pain Stop: 11/14/16 01:48 Last Admin: 09/15/16 02:36 Dose: 1 mg Dextrose/Sodium Chloride (D5-0.45ns) 1,000 mls @ 50 mls/hr IV .Q20H [facility] Stop: 11/09/16 22:18 Last Admin: 09/15/16 02:42 Dose: 50 mls/hr Meropenem 1 gm/ Sodium (Chloride) 100 mls @ 100 mls/hr IV Q8H [facility] Stop: 11/12/16 13:59 Last Admin: 09/15/16 21:10 Dose: 100 mls/hr Levothyroxine Sodium (Synthroid) 0.125 mg PO QDAC [facility] Stop: 11/10/16 07:29 Last Admin: 09/15/16 06:39 Dose: Not Given Lorazepam (Ativan) 1 mg PO Q6HR PRN; Protocol PRN Reason: Agitation Stop: 11/10/16 11:23 Last Admin: 09/12/16 09:37 Dose: 1 mg Mirtazapine (Remeron) 15 mg PO HS [facility] PRN Reason: Protocol Stop: 11/10/16 20:59 Last Admin: 09/15/16 20:39 Dose: 15 mg General: no acute distress, well developed, well nourished HEENT: atraumatic, normocephalic, PERRLA, EOMI Neck: supple, no thyromegaly, no lymphadenopathy Cardiovascular: S1S2, regular Lungs: clear to auscultation bilaterally, clear to percussion Abdomen: soft, bowel sounds, no tender, no distended, no mass Extremities: no cyanosis, no clubbing, no edema Neurological: awake, alert - Procedures Procedures: Procedures Procedure Code Date EGD PLACE GASTROSTOMY TUBE 94869 09/10/16 EMERGENCY DEPT VISIT 98514 10/02/11 INJECT/INFUSE NEC 99.29 03/06/10 INSERTION OF FEEDING DEVICE INTO STOMACH, PERC APPROACH [id number] 09/10/16 LAPAROSCOPIC CHOLECYSTECTOMY 51.23 03/14/12 LAPAROSCOPIC CHOLECYSTECTOMY 71614 03/14/12 OTHER GROUP THERAPY 94.44 10/02/11 THER/PROPH/DIAG INJ SC/IM 54058 03/06/10 Infectious Disease Assmt/Plan - Problem List Patient Problems: All Active Problems Abdominal pain (Acute) R10.9 - Assessment Assessment: Impression: 1. UTI, ESBL E coli and suspect pyelonephritis. 2. Dementia. 3. Failure to thrive. 4. s/p PEG placement. Recommendations: Continue meropenem, when needed may change meropenem to Invannz 1 G IV daily for 7 days from now. Nutritional Asmnt/Malnutr-PDOC - Dietary Evaluation Malnutrition Findings (Please click <Entered> for more info): Nutritional Asmnt/Malnutrition Start: 09/11/16 10: 40 Text: Status: Complete Freq: Document 09/11/16 10:42 MMNITO (Rec: 09/11/16 10:51 MMULN [email or web address] [email or web address]) Nutritional Asmnt/Malnutrition Patient General Information Nutritional Screening High Risk Screening Diagnosis Failure to thrive, UTI, generalized weakness (reason for visit) Pertinent Medical Hx/Surgical Hx Dementia, schizophrenia, GERD, hypothyroidism, difficulty walking, osteoporosis, generalized weakness Subjective Information Patient was admitted for having severe generalized weakness and decreased PO intake for 2-3 days. Patient in bed at time of visit, appears agitated. Per nursing, she is heistent to take in any oral intake. Current Diet Order/ Nutrition Support Pureed Patient / S.O Not Indicated Pertinent Medications colace, pepcid, synthroid Pertinent Labs Albumin 3.3, TAG 248 Nutritional Hx/Data Height 1.65 m Height (Calculated Centimeters) 165.1 Current Weight (lbs) 58.06 kg Weight (Calculated Kilograms) 58.1 Weight (Calculated Grams) 26454.8 [place] Body Weight 125 % [place] Body Weight 102 Recent Weight Change No Weight Status Approriate GI Symptoms Difficult in: Chewing Food Allergies No Cultural/Ethnic/Quaker Belief none indicated Usual diet at home Pureed Skin Integrity/Comment: Intact, Juice 14 Current %PO Poor (25-49%) Estimated Nutritional Goals BEE in Kcals: Using Current wt Calories/Kcals/Kg 27-32 kcal/kg (slight increase for FTT) Kcals Calculated 4237-7171 kcal/day Protein: Using Current wt Protein g/k-1.2 gm/kg Protein Calculated 60-70 gm/day Fluid: ml 3197-3056 ml/day Nutritional Problem 1. Problem Problem Inadequate oral intake related to Etiology possible poor appetite aeb Signs/Symptoms: meeting <50% of estimated nutrient needs Malnutrition Related to Morbid Obesity Malnutrition related to morbid obesity No Intervention/Recommendation Recommendations by RD Protein supplementation Comments 1. Continue pureed diet with healthshake and encourage oral intake. Provided assistance with meals. 2. If patient continues to denies oral intake, may consider enteral nutrition. Expected Outcomes/Goals Expected Outcomes/Goals Oral intake improves to meet > 75% of needs, weight remains stable, skin remains intact Physician Parameters for PEM Serum Albumin (g/dl) 3.1 - 3.4 (Mild)
[2016-09-16] MEDS: Meropenem 1 GM in Sodium Chloride 0.9% 100 ML IV SCH ×3 (05:36→22:00)
[2016-09-16] MEDS: Levothyroxine 0.125 Mg Tab PO SCH (09:10)
--- NOTE | 2016-09-16 12:23 | Infectious Disease Prog Note ---
Infectious Disease Subjective - Review of Systems Service Date: 09/16/16 Subjective: there is no new change, there is no fever. Infectious Disease Objective - Results Result Diagrams: 09/11/16 06:24 09/11/16 06:24 Recent Labs: Laboratory Last Values WBC 6.6 Th/cmm (4.8-10.8) D 09/11/16 06:24 RBC 4.71 Mil/cmm (3.80-5.20) 09/11/16 06:24 Hgb 13.3 gm/dL (11.7-16.1) D 09/11/16 06:24 Hct 40.1 % (35.0-45.0) D 09/11/16 06:24 MCV 85.2 fl (81-100) 09/11/16 06:24 MCH 28.3 pg (27.0-31.0) 09/11/16 06:24 MCHC Differential 33.2 pg (28.0-36.0) 09/11/16 06:24 RDW 13.1 % (11.5-20.0) 09/11/16 06:24 Plt Count 190 Th/cmm (150-400) 09/11/16 06:24 MPV 9.9 fl 09/11/16 06:24 Neutrophils % 74.8 % (40.0-80.0) 09/10/16 19:10 Lymphocytes % 20.1 % (20.0-50.0) 09/10/16 19:10 Monocytes % 4.6 % (2.0-10.0) 09/10/16 19:10 Eosinophils % 0.4 % (0.0-5.0) 09/10/16 19:10 Basophils % 0.1 % (0.0-2.0) 09/10/16 19:10 Neutrophils (Manual) 29 % (40-80) L 09/11/16 06:24 Lymphocytes 41 % (20-50) 09/11/16 06:24 Monocytes 19 % (2-10) H 09/11/16 06:24 Eosinophils 3 % (0-5) 09/11/16 06:24 Basophils 1 % (0-3) 09/11/16 06:24 Atypical Lymphocytes 7 % 09/11/16 06:24 Platelet Estimate ADEQUATE (NORMAL) 09/11/16 06:24 Platelet Morphology NORMAL (NORMAL) 09/11/16 06:24 RBC Morph Micro Appear NORMAL (NORMAL) 09/11/16 06:24 PT 9.7 SECONDS (9.5-11.5) 09/10/16 19:10 INR 0.93 (0.5-1.4) 09/10/16 19:10 PTT (Actin FS) 26.1 SECONDS (26.0-38.0) 09/10/16 19:10 Sodium 142 mEq/L (136-145) 09/11/16 06:24 Potassium 3.7 mEq/L (3.5-5.1) 09/11/16 06:24 Chloride 110 mEq/L (98-107) H 09/11/16 06:24 Carbon Dioxide 27.2 mEq/L (21.0-31.0) 09/11/16 06:24 Anion Gap 8.5 (7.0-16.0) 09/11/16 06:24 BUN 14 mg/dL (7-25) 09/11/16 06:24 Creatinine 0.9 mg/dL (0.6-1.2) 09/11/16 06:24 Est GFR ( Amer) TNP 09/11/16 06:24 Est GFR (Non-Af Amer) TNP 09/11/16 06:24 BUN/Creatinine Ratio 15.6 09/11/16 06:24 Glucose 86 mg/dL (70-105) 09/11/16 06:24 POC Glucose 91 MG/DL (70 - 105) 09/14/16 15:44 Whole Bld Lactic Acid 1.81 mmol/L (0.60-1.99) 09/10/16 21:00 Calcium 8.8 mg/dL (8.6-10.3) 09/11/16 06:24 Total Bilirubin 0.3 mg/dL (0.3-1.0) 09/11/16 06:24 AST 14 U/L (13-39) 09/11/16 06:24 ALT 7 U/L (7-52) 09/11/16 06:24 Alkaline Phosphatase 83 U/L (34-104) 09/11/16 06:24 Troponin I < 0.01 ng/mL (0.01-0.05) L 09/10/16 19:10 Total Protein 6.0 gm/dL (6.0-8.3) 09/11/16 06:24 Albumin 3.3 gm/dL (3.7-5.3) L 09/11/16 06:24 Globulin 2.7 gm/dL 09/11/16 06:24 Albumin/Globulin Ratio 1.2 (1.0-1.8) 09/11/16 06:24 Triglycerides 248 mg/dL (<150) H 09/10/16 19:10 Cholesterol 165 mg/dL (<200) 09/10/16 19:10 LDL Cholesterol Direct 97 mg/dL (75-193) 09/10/16 19:10 HDL Cholesterol 41 mg/dL (23-92) 09/10/16 19:10 TSH 4.69 uIU/ml (0.34-5.60) 09/10/16 19:10 Urine Source CLEAN C 09/10/16 20:10 Urine Color YELLOW 09/10/16 20:10 Urine Clarity CLOUDY (CLEAR) H 09/10/16 20:10 Urine pH 5.0 09/10/16 20:10 Ur Specific [place] 1.025 (1.005-1.030) 09/10/16 20:10 Urine Protein 30 mg/dL (NEGATIVE) H 09/10/16 20:10 Urine Glucose (UA) NEGATIVE mg/dL (NEGATIVE) 09/10/16 20:10 Urine Ketones TRACE mg/dL (NEGATIVE) 09/10/16 20:10 Urine Blood MODERATE (NEGATIVE) H 09/10/16 20:10 Urine Nitrate POSITIVE (NEGATIVE) H 09/10/16 20:10 Urine Bilirubin NEGATIVE (NEGATIVE) 09/10/16 20:10 Urine Urobilinogen 1.0 E.U./dL (0.2 - 1.0) 09/10/16 20:10 Ur Leukocyte Esterase MODERATE (NEGATIVE) H 09/10/16 20:10 Urine RBC 5-10 /hpf (0-5) H 09/10/16 20:10 Urine WBC >100 /hpf (0-5) H 09/10/16 20:10 Ur Epithelial Cells FEW /lpf (FEW) 09/10/16 20:10 Urine Bacteria MANY /hpf (NONE SEEN) 09/10/16 20:10 - Physical Exam Vitals and I&O: Vital Signs Temp 97 F 09/16/16 08:00 Pulse 73 09/16/16 09:08 Resp 16 09/16/16 08:00 BP 115/70 09/16/16 09:08 Pulse Ox 97 09/16/16 08:00 Intake & Output 09/15/16 09/16/16 09/16/16 18:59 06:59 18:59 Intake Total 500 100 Balance 500 100 Intake: Intake, IV Amount 200 100 Meropenem 1 gm In Sodium 200 100 Chloride 0.9% 100 ml @ 100 mls/hr IV Q8H [facility] Rx# :[id number] Tube Feeding 300 Other: # Voids 2 Active Medications: Current Medications Acetaminophen (Tylenol) 650 mg PO Q6HR PRN PRN Reason: Pain (Mild) Stop: 11/09/16 22:20 Last Admin: 09/14/16 21:34 Dose: 650 mg Acetaminophen (Tylenol) 650 mg PO Q6HR PRN PRN Reason: FVER >100F Stop: 11/09/16 22:20 Albuterol Sulfate (Albuterol 2.5mg/3ml Neb Ud) 2.5 mg HHN Q4HR PRN PRN Reason: Shortness of Breath or Wheeze Stop: 11/09/16 22:20 Alendronate Sodium (Fosamax) 70 mg PO We@0630 [facility] Stop: 11/14/16 06:29 Last Admin: 09/15/16 07:49 Dose: Not Given Benazepril HCl (Lotensin) 10 mg PO DAILY [facility] Stop: 11/10/16 08:59 Last Admin: 09/16/16 09:08 Dose: 10 mg Docusate Sodium (Colace) 250 mg PO HS [facility] Stop: 11/10/16 20:59 Last Admin: 09/15/16 20:39 Dose: 250 mg Donepezil HCl (Aricept) 10 mg PO HS [facility] Stop: 11/10/16 20:59 Last Admin: 09/15/16 20:38 Dose: 10 mg Famotidine (Pepcid) 20 mg PO DAILY [facility] Stop: 11/10/16 08:59 Last Admin: 09/16/16 09:09 Dose: 20 mg Hydromorphone HCl (Dilaudid) 1 mg IVP Q6HR PRN PRN Reason: pain Stop: 11/14/16 01:48 Last Admin: 09/15/16 02:36 Dose: 1 mg Dextrose/Sodium Chloride (D5-0.45ns) 1,000 mls @ 50 mls/hr IV .Q20H [facility] Stop: 11/09/16 22:18 Last Admin: 09/15/16 02:42 Dose: 50 mls/hr Meropenem 1 gm/ Sodium (Chloride) 100 mls @ 100 mls/hr IV Q8H [facility] Stop: 11/12/16 13:59 Last Admin: 09/16/16 05:36 Dose: 100 mls/hr Levothyroxine Sodium (Synthroid) 0.125 mg PO QDAC [facility] Stop: 11/10/16 07:29 Last Admin: 09/16/16 09:10 Dose: 0.125 mg Lorazepam (Ativan) 1 mg PO Q6HR PRN; Protocol PRN Reason: Agitation Stop: 11/10/16 11:23 Last Admin: 09/12/16 09:37 Dose: 1 mg Mirtazapine (Remeron) 15 mg PO HS [facility] PRN Reason: Protocol Stop: 11/10/16 20:59 Last Admin: 09/15/16 20:39 Dose: 15 mg General: no acute distress, well developed, well nourished HEENT: atraumatic, normocephalic, PERRLA, EOMI Neck: supple Cardiovascular: S1S2, regular Lungs: clear to auscultation bilaterally, clear to percussion Abdomen: soft, no tender, no distended Extremities: no cyanosis, no clubbing, no edema Neurological: awake, alert Skin: intact - Procedures Procedures: Procedures Procedure Code Date EGD PLACE GASTROSTOMY TUBE 72855 09/10/16 EMERGENCY DEPT VISIT 81567 10/02/11 INJECT/INFUSE NEC 99.29 03/06/10 INSERTION OF FEEDING DEVICE INTO STOMACH, PERC APPROACH [id number] 09/10/16 LAPAROSCOPIC CHOLECYSTECTOMY 51.23 03/14/12 LAPAROSCOPIC CHOLECYSTECTOMY 68326 03/14/12 OTHER GROUP THERAPY 94.44 10/02/11 THER/PROPH/DIAG INJ SC/IM 06567 03/06/10 Infectious Disease Assmt/Plan - Problem List Patient Problems: All Active Problems Abdominal pain (Acute) R10.9 - Assessment Assessment: Impression: 1. UTI, ESBL E coli and suspect pyelonephritis. 2. Dementia. 3. Failure to thrive. 4. s/p PEG placement. Recommendations: Continue meropenem, when needed may change meropenem to Invannz 1 G IV daily for 7 days from now. Nutritional Asmnt/Malnutr-PDOC - Dietary Evaluation Malnutrition Findings (Please click <Entered> for more info): Nutritional Asmnt/Malnutrition Start: 09/11/16 10: 40 Text: Status: Complete Freq: Document 09/11/16 10:42 AYLIN (Rec: 09/11/16 10:51 AYLIN GONG- [facility]) Nutritional Asmnt/Malnutrition Patient General Information Nutritional Screening High Risk Screening Diagnosis Failure to thrive, UTI, generalized weakness (reason for visit) Pertinent Medical Hx/Surgical Hx Dementia, schizophrenia, GERD, hypothyroidism, difficulty walking, osteoporosis, generalized weakness Subjective Information Patient was admitted for having severe generalized weakness and decreased PO intake for 2-3 days. Patient in bed at time of visit, appears agitated. Per nursing, she is heistent to take in any oral intake. Current Diet Order/ Nutrition Support Pureed Patient / S.O Not Indicated Pertinent Medications colace, pepcid, synthroid Pertinent Labs Albumin 3.3, TAG 248 Nutritional Hx/Data Height 1.65 m Height (Calculated Centimeters) 165.1 Current Weight (lbs) 58.06 kg Weight (Calculated Kilograms) 58.1 Weight (Calculated Grams) 05593.8 [place] Body Weight 125 % [place] Body Weight 102 Recent Weight Change No Weight Status Approriate GI Symptoms Difficult in: Chewing Food Allergies No Cultural/Ethnic/Taoism Belief none indicated Usual diet at home Pureed Skin Integrity/Comment: [place] 14 Current %PO Poor (25-49%) Estimated Nutritional Goals BEE in Kcals: Using Current wt Calories/Kcals/Kg 27-32 kcal/kg (slight increase for FTT) Kcals Calculated 7236-3641 kcal/day Protein: Using Current wt Protein g/k-1.2 gm/kg Protein Calculated 60-70 gm/day Fluid: ml 9983-5978 ml/day Nutritional Problem 1. Problem Problem Inadequate oral intake related to Etiology possible poor appetite aeb Signs/Symptoms: meeting <50% of estimated nutrient needs Malnutrition Related to Morbid Obesity Malnutrition related to morbid obesity No Intervention/Recommendation Recommendations by RD Protein supplementation Comments 1. Continue pureed diet with healthshake and encourage oral intake. Provided assistance with meals. 2. If patient continues to denies oral intake, may consider enteral nutrition. Expected Outcomes/Goals Expected Outcomes/Goals Oral intake improves to meet > 75% of needs, weight remains stable, skin remains intact Physician Parameters for PEM Serum Albumin (g/dl) 3.1 - 3.4 (Mild)
[2016-09-17] MEDS: Meropenem 1 GM in Sodium Chloride 0.9% 100 ML IV SCH ×2 (05:47→14:52)
[2016-09-17] MEDS: Levothyroxine 0.125 Mg Tab PO SCH (08:38)
--- NOTE | 2016-09-17 13:26 | Infectious Disease Prog Note ---
Infectious Disease Subjective - Review of Systems Service Date: 09/17/16 Subjective: there is no new change, there is no fever. Infectious Disease Objective - Results Result Diagrams: 09/11/16 06:24 09/11/16 06:24 Recent Labs: Laboratory Last Values WBC 6.6 Th/cmm (4.8-10.8) D 09/11/16 06:24 RBC 4.71 Mil/cmm (3.80-5.20) 09/11/16 06:24 Hgb 13.3 gm/dL (11.7-16.1) D 09/11/16 06:24 Hct 40.1 % (35.0-45.0) D 09/11/16 06:24 MCV 85.2 fl (81-100) 09/11/16 06:24 MCH 28.3 pg (27.0-31.0) 09/11/16 06:24 MCHC Differential 33.2 pg (28.0-36.0) 09/11/16 06:24 RDW 13.1 % (11.5-20.0) 09/11/16 06:24 Plt Count 190 Th/cmm (150-400) 09/11/16 06:24 MPV 9.9 fl 09/11/16 06:24 Neutrophils % 74.8 % (40.0-80.0) 09/10/16 19:10 Lymphocytes % 20.1 % (20.0-50.0) 09/10/16 19:10 Monocytes % 4.6 % (2.0-10.0) 09/10/16 19:10 Eosinophils % 0.4 % (0.0-5.0) 09/10/16 19:10 Basophils % 0.1 % (0.0-2.0) 09/10/16 19:10 Neutrophils (Manual) 29 % (40-80) L 09/11/16 06:24 Lymphocytes 41 % (20-50) 09/11/16 06:24 Monocytes 19 % (2-10) H 09/11/16 06:24 Eosinophils 3 % (0-5) 09/11/16 06:24 Basophils 1 % (0-3) 09/11/16 06:24 Atypical Lymphocytes 7 % 09/11/16 06:24 Platelet Estimate ADEQUATE (NORMAL) 09/11/16 06:24 Platelet Morphology NORMAL (NORMAL) 09/11/16 06:24 RBC Morph Micro Appear NORMAL (NORMAL) 09/11/16 06:24 PT 9.7 SECONDS (9.5-11.5) 09/10/16 19:10 INR 0.93 (0.5-1.4) 09/10/16 19:10 PTT (Actin FS) 26.1 SECONDS (26.0-38.0) 09/10/16 19:10 Sodium 142 mEq/L (136-145) 09/11/16 06:24 Potassium 3.7 mEq/L (3.5-5.1) 09/11/16 06:24 Chloride 110 mEq/L (98-107) H 09/11/16 06:24 Carbon Dioxide 27.2 mEq/L (21.0-31.0) 09/11/16 06:24 Anion Gap 8.5 (7.0-16.0) 09/11/16 06:24 BUN 14 mg/dL (7-25) 09/11/16 06:24 Creatinine 0.9 mg/dL (0.6-1.2) 09/11/16 06:24 Est GFR ( Amer) TNP 09/11/16 06:24 Est GFR (Non-Af Amer) TNP 09/11/16 06:24 BUN/Creatinine Ratio 15.6 09/11/16 06:24 Glucose 86 mg/dL (70-105) 09/11/16 06:24 POC Glucose 91 MG/DL (70 - 105) 09/14/16 15:44 Whole Bld Lactic Acid 1.81 mmol/L (0.60-1.99) 09/10/16 21:00 Calcium 8.8 mg/dL (8.6-10.3) 09/11/16 06:24 Total Bilirubin 0.3 mg/dL (0.3-1.0) 09/11/16 06:24 AST 14 U/L (13-39) 09/11/16 06:24 ALT 7 U/L (7-52) 09/11/16 06:24 Alkaline Phosphatase 83 U/L (34-104) 09/11/16 06:24 Troponin I < 0.01 ng/mL (0.01-0.05) L 09/10/16 19:10 Total Protein 6.0 gm/dL (6.0-8.3) 09/11/16 06:24 Albumin 3.3 gm/dL (3.7-5.3) L 09/11/16 06:24 Globulin 2.7 gm/dL 09/11/16 06:24 Albumin/Globulin Ratio 1.2 (1.0-1.8) 09/11/16 06:24 Triglycerides 248 mg/dL (<150) H 09/10/16 19:10 Cholesterol 165 mg/dL (<200) 09/10/16 19:10 LDL Cholesterol Direct 97 mg/dL (75-193) 09/10/16 19:10 HDL Cholesterol 41 mg/dL (23-92) 09/10/16 19:10 TSH 4.69 uIU/ml (0.34-5.60) 09/10/16 19:10 Urine Source CLEAN C 09/10/16 20:10 Urine Color YELLOW 09/10/16 20:10 Urine Clarity CLOUDY (CLEAR) H 09/10/16 20:10 Urine pH 5.0 09/10/16 20:10 Ur Specific [place] 1.025 (1.005-1.030) 09/10/16 20:10 Urine Protein 30 mg/dL (NEGATIVE) H 09/10/16 20:10 Urine Glucose (UA) NEGATIVE mg/dL (NEGATIVE) 09/10/16 20:10 Urine Ketones TRACE mg/dL (NEGATIVE) 09/10/16 20:10 Urine Blood MODERATE (NEGATIVE) H 09/10/16 20:10 Urine Nitrate POSITIVE (NEGATIVE) H 09/10/16 20:10 Urine Bilirubin NEGATIVE (NEGATIVE) 09/10/16 20:10 Urine Urobilinogen 1.0 E.U./dL (0.2 - 1.0) 09/10/16 20:10 Ur Leukocyte Esterase MODERATE (NEGATIVE) H 09/10/16 20:10 Urine RBC 5-10 /hpf (0-5) H 09/10/16 20:10 Urine WBC >100 /hpf (0-5) H 09/10/16 20:10 Ur Epithelial Cells FEW /lpf (FEW) 09/10/16 20:10 Urine Bacteria MANY /hpf (NONE SEEN) 09/10/16 20:10 - Physical Exam Vitals and I&O: Vital Signs Temp 97.2 F 09/17/16 07:47 Pulse 85 09/17/16 08:39 Resp 18 09/17/16 07:47 BP 137/75 09/17/16 08:39 Pulse Ox 96 09/17/16 07:47 Intake & Output 09/16/16 09/17/16 09/17/16 18:59 06:59 18:59 Intake Total 700 100 200 Balance 700 100 200 Intake: Intake, IV Amount 100 100 Meropenem 1 gm In Sodium 100 100 Chloride 0.9% 100 ml @ 100 mls/hr IV Q8H [facility] Rx# :[id number] Tube Feeding 600 200 Other: # Voids 4 # Bowel Movements 1 Active Medications: Current Medications Acetaminophen (Tylenol) 650 mg PO Q6HR PRN PRN Reason: Pain (Mild) Stop: 11/09/16 22:20 Last Admin: 09/14/16 21:34 Dose: 650 mg Acetaminophen (Tylenol) 650 mg PO Q6HR PRN PRN Reason: FVER >100F Stop: 11/09/16 22:20 Albuterol Sulfate (Albuterol 2.5mg/3ml Neb Ud) 2.5 mg HHN Q4HR PRN PRN Reason: Shortness of Breath or Wheeze Stop: 11/09/16 22:20 Alendronate Sodium (Fosamax) 70 mg PO We@0630 [facility] Stop: 11/14/16 06:29 Last Admin: 09/15/16 07:49 Dose: Not Given Benazepril HCl (Lotensin) 10 mg PO DAILY [facility] Stop: 11/10/16 08:59 Last Admin: 09/17/16 08:39 Dose: 10 mg Docusate Sodium (Colace) 250 mg PO HS [facility] Stop: 11/10/16 20:59 Last Admin: 09/16/16 20:49 Dose: 250 mg Donepezil HCl (Aricept) 10 mg PO HS [facility] Stop: 11/10/16 20:59 Last Admin: 09/16/16 20:49 Dose: 10 mg Famotidine (Pepcid) 20 mg PO DAILY [facility] Stop: 11/10/16 08:59 Last Admin: 09/17/16 08:39 Dose: 20 mg Hydromorphone HCl (Dilaudid) 1 mg IVP Q6HR PRN PRN Reason: pain Stop: 11/14/16 01:48 Last Admin: 09/15/16 02:36 Dose: 1 mg Dextrose/Sodium Chloride (D5-0.45ns) 1,000 mls @ 50 mls/hr IV .Q20H [facility] Stop: 11/09/16 22:18 Last Admin: 09/15/16 02:42 Dose: 50 mls/hr Meropenem 1 gm/ Sodium (Chloride) 100 mls @ 100 mls/hr IV Q8H [facility] Stop: 11/12/16 13:59 Last Admin: 09/17/16 05:47 Dose: 100 mls/hr Levothyroxine Sodium (Synthroid) 0.125 mg PO QDAC [facility] Stop: 11/10/16 07:29 Last Admin: 09/17/16 08:38 Dose: 0.125 mg Lorazepam (Ativan) 1 mg PO Q6HR PRN; Protocol PRN Reason: Agitation Stop: 11/10/16 11:23 Last Admin: 09/12/16 09:37 Dose: 1 mg Mirtazapine (Remeron) 22.5 mg PO HS [facility] PRN Reason: Protocol Stop: 11/10/16 20:59 General: no acute distress, well developed, well nourished HEENT: atraumatic, normocephalic, PERRLA Neck: supple, no thyromegaly Cardiovascular: S1S2, regular Lungs: clear to auscultation bilaterally, clear to percussion Abdomen: soft, other (peg), no tender, no distended Extremities: no cyanosis, no clubbing, no edema Neurological: awake, alert Skin: intact - Procedures Procedures: Procedures Procedure Code Date EGD PLACE GASTROSTOMY TUBE 04572 09/10/16 EMERGENCY DEPT VISIT 16399 10/02/11 INJECT/INFUSE NEC 99.29 03/06/10 INSERTION OF FEEDING DEVICE INTO STOMACH, PERC APPROACH [id number] 09/10/16 LAPAROSCOPIC CHOLECYSTECTOMY 51.23 03/14/12 LAPAROSCOPIC CHOLECYSTECTOMY 36817 03/14/12 OTHER GROUP THERAPY 94.44 10/02/11 THER/PROPH/DIAG INJ SC/IM 52191 03/06/10 Infectious Disease Assmt/Plan - Problem List Patient Problems: All Active Problems Abdominal pain (Acute) R10.9 - Assessment Assessment: Impression: 1. UTI, ESBL E coli and suspect pyelonephritis. 2. Dementia. 3. Failure to thrive. 4. s/p PEG placement. Recommendations: Continue meropenem, when needed may change meropenem to Invannz 1 G IV daily for 7 days from now. 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 Can be discharged to SNF from ID point of view. Nutritional Asmnt/Malnutr-PDOC - Dietary Evaluation Malnutrition Findings (Please click <Entered> for more info): Nutritional Asmnt/Malnutrition Start: 09/11/16 10: 40 Text: Status: Complete Freq: Document 09/11/16 10:42 AYLIN (Rec: 09/11/16 10:51 MMULRITA GONG [email or web address]) Nutritional Asmnt/Malnutrition Patient General Information Nutritional Screening High Risk Screening Diagnosis Failure to thrive, UTI, generalized weakness (reason for visit) Pertinent Medical Hx/Surgical Hx Dementia, schizophrenia, GERD, hypothyroidism, difficulty walking, osteoporosis, generalized weakness Subjective Information Patient was admitted for having severe generalized weakness and decreased PO intake for 2-3 days. Patient in bed at time of visit, appears agitated. Per nursing, she is heistent to take in any oral intake. Current Diet Order/ Nutrition Support Pureed Patient / S.O Not Indicated Pertinent Medications colace, pepcid, synthroid Pertinent Labs Albumin 3.3, TAG 248 Nutritional Hx/Data Height 1.65 m Height (Calculated Centimeters) 165.1 Current Weight (lbs) 58.06 kg Weight (Calculated Kilograms) 58.1 Weight (Calculated Grams) 99165.8 [place] Body Weight 125 % [place] Body Weight 102 Recent Weight Change No Weight Status Approriate GI Symptoms Difficult in: Chewing Food Allergies No Cultural/Ethnic/Orthodox Belief none indicated Usual diet at home Pureed Skin Integrity/Comment: Intact, Juice 14 Current %PO Poor (25-49%) Estimated Nutritional Goals BEE in Kcals: Using Current wt Calories/Kcals/Kg 27-32 kcal/kg (slight increase for FTT) Kcals Calculated 7845-3725 kcal/day Protein: Using Current wt Protein g/k-1.2 gm/kg Protein Calculated 60-70 gm/day Fluid: ml 2616-1086 ml/day Nutritional Problem 1. Problem Problem Inadequate oral intake related to Etiology possible poor appetite aeb Signs/Symptoms: meeting <50% of estimated nutrient needs Malnutrition Related to Morbid Obesity Malnutrition related to morbid obesity No Intervention/Recommendation Recommendations by RD Protein supplementation Comments 1. Continue pureed diet with healthshake and encourage oral intake. Provided assistance with meals. 2. If patient continues to denies oral intake, may consider enteral nutrition. Expected Outcomes/Goals Expected Outcomes/Goals Oral intake improves to meet > 75% of needs, weight remains stable, skin remains intact Physician Parameters for PEM Serum Albumin (g/dl) 3.1 - 3.4 (Mild)
--- NOTE | 2016-09-19 11:31 | Discharge Summary ---
PRELIMINARY DIAGNOSES: 1. Failure to thrive. 2. Generalized weakness. 3. Urinary tract infection. 4. Dehydration, malnutrition. 5. Dysphagia. 6. Dementia. 7. Depression. 8. Schizophrenia. 9. Hypertension. 10. Gastroesophageal reflux disease. DISCHARGE DIAGNOSES: 1. Status post G-tube placement secondary to failure to thrive and generalized weakness. 2. Generalized weakness, now improved. 3. Urinary tract infection positive for ESBL. 4. Dehydration, now corrected. 5. Dysphagia. 6. Dementia. 7. Depression. 8. Schizophrenia. 9. Hypertension. 10. Gastroesophageal reflux disease. HISTORY OF PRESENT ILLNESS: This is a 76-year-old female who presents to [facility] ER for failure to thrive, dehydration, malnutrition and dysphagia. The patient was noted to have decreased appetite at the halfway facility failure to thrive, losing weight, and dehydration was subsequently transferred to [facility] ER for further evaluation and treatment. PAST MEDICAL HISTORY: Includes dementia, hypertension, schizophrenia, gastroesophageal reflux disease, osteoporosis, major depression, hypothyroidism. Her initial labs revealed a white count of 11.3, hemoglobin 16.1, hematocrit 48.3, platelets 236. Chem-7: Sodium was 139, potassium 3.9, chloride 107, bicarbonate 25, BUN 16, creatinine 1.0 and glucose 143. Her UA did show some cloudiness with moderate blood and positive for nitrites, was noted to have moderate leukocyte esterase. The patient's thyroid was normal at 4.6, AST 19, ALT 7, alkaline phosphatase 106. Troponin was less than 0.01. Her initial chest x-ray was essentially normal. HOSPITAL COURSE: The patient improved during her hospital stay, was seen by GI, and G-tube was inserted after consent from the patient's conservator. The patient was then started on G-tube feeding, which she did respond quite well to. Her medications were continued via G-tube. The patient's dehydration was corrected. Malnutrition also improved. The patient was found to have ESBL in her urine and was initially placed on meropenem IV, which was changed to Invanz 1 gram IV daily for 7 days. The patient was subsequently discharged back to the shelter. [facility]# [id number]
== END 2016-09-17 20:19 | DRG 641 ==
LOC: ER 18:49 → MSI 21:59
PROVIDERS: ADMIT Family Medicine; ATTEND Family Medicine
PROC: 0DH63UZ Insertion of Feeding Device into Stomach, Percutaneous Approach (ICD-10-PCS; principal; 2016-09-14)
DX: E86.0 Dehydration (principal); R64 Cachexia; R13.10 Dysphagia, unspecified; F03.90 Unspecified dementia, unspecified severity, without behavioral disturbance, psychotic disturbance, mood disturbance, and anxiety; N39.0 Urinary tract infection, site not specified; R62.7 Adult failure to thrive; F20.9 Schizophrenia, unspecified; F32.9 Major depressive disorder, single episode, unspecified; I10 Essential (primary) hypertension; K21.9 Gastro-esophageal reflux disease without esophagitis; M81.0 Age-related osteoporosis without current pathological fracture; E03.9 Hypothyroidism, unspecified; F29 Unspecified psychosis not due to a substance or known physiological condition; B96.20 Unspecified Escherichia coli [E. coli] as the cause of diseases classified elsewhere; Z16.12 Extended spectrum beta lactamase (ESBL) resistance; Z88.8 Allergy status to other drugs, medicaments and biological substances; Z68.21 Body mass index [BMI] 21.0-21.9, adult; Z88.0 Allergy status to penicillin
CPT/HCPCS: 36415-UA; 71010-TC; 76770-TC; 80053-TC; 80061-TC; 81001-TC; 82948-90; 83605; 84443-TC; 84484-TC; 85007-TC; 85025-TC; 85027-TC; 85610-TC; 85730-TC; 87086-90; 93005; 94760; J0696; J1170; J2185; J7030; Z7506; Z7610